=== PATIENT | female | born 2000 | race Two or more races ===

== ENCOUNTER 2022-08-25 17:56 | Outpatient (CLI) | payer OTHER ==
[2022-08-25] MEDS ORDERED: FOLIC ACID0.8 M1 PO ×2 (19:46)
[2022-08-25] MEDS ORDERED: PRENATABS RX T1 EACH PO (19:46)
== END 2022-08-26 10:07 | disposition home or self-care (01) ==
LOC: OBS/DEL 17:56 → LDR 20:34 → OBS/DEL 08-26 09:31
PROVIDERS: ATTEND Obstetrics & Gynecology
DX: O47.03 False labor before 37 completed weeks of gestation, third trimester (principal); Z3A.39 39 weeks gestation of pregnancy; Z20.822 Contact with and (suspected) exposure to COVID-19; Z91.040 Latex allergy status

== ENCOUNTER → 2024-12-09 12:53 | Outpatient (CLI) | payer OTHER ==
[~2024-12-09 12:53] MED LIST: FOLIC ACID0.8 M1 PO; ONDANSETRON ODT4 MG PO; PEPCID AC20 MG PO; PRENATABS RX T1 EACH PO
== END | disposition home or self-care (01) ==
LOC: PRENATAL 12:53
PROVIDERS: ATTEND Obstetrics & Gynecology Maternal & Fetal Medicine
DX: O36.80X0 Pregnancy with inconclusive fetal viability, not applicable or unspecified (principal); Z36.82 Encounter for antenatal screening for nuchal translucency; Z14.8 Genetic carrier of other disease; O34.219 Maternal care for unspecified type scar from previous cesarean delivery; Z3A.12 12 weeks gestation of pregnancy

== ENCOUNTER 2025-02-03 15:32 | Outpatient (CLI) | payer OTHER | END 2025-02-03 15:34 | disposition home or self-care (01) | LOC: PRENATAL 15:32 | PROVIDERS: ATTEND Obstetrics & Gynecology Maternal & Fetal Medicine | DX: O44.02 Complete placenta previa NOS or without hemorrhage, second trimester (principal); O34.219 Maternal care for unspecified type scar from previous cesarean delivery; Z3A.20 20 weeks gestation of pregnancy ==